=== PATIENT | male | born 1990 | race Caucasian/White ===

== ENCOUNTER 2022-08-25 14:29 | Emergency (ER) | payer OTHER ==
[~2022-08-25] VITALS: Ht 177.8 cm; Wt 78.0 kg
[2022-08-25] MEDS ORDERED: TDAP DIPH,PERTUSS,TET VAC/PF 0.5 ML DISP.SYRIN IM ONE ×2 (16:00→16:22)
[2022-08-25] MEDS ORDERED: NEOMY/BACITRA/POLYMYXIN B OINT UD PACKET TP ONE ×2 (16:00→16:22)
[2022-08-25] MEDS ORDERED: LIDOCAINE HCL 1% 20 ML VIAL IJ ONE (16:00)
[2022-08-25] MEDS ORDERED: LIDOCAINE HCL 1% 20 ML VIAL ONE (16:22)
[2022-08-25] MEDS ORDERED: ERYT3.5O24 LEFTEYE (17:12)
--- NOTE | 2022-08-25 17:35 | NUR ---
Patient discharged to home in stable condition. Written and verbal after care instructions given. Patient verbalizes understanding of instructions. Stressed follow up or return to ER for worsening s/s.
== END 2022-08-25 17:57 | disposition home or self-care (01) ==
LOC: ER 14:29
DX: S01.112A Laceration without foreign body of left eyelid and periocular area, initial encounter (principal); W22.8XXA Striking against or struck by other objects, initial encounter; Y92.89 Other specified places as the place of occurrence of the external cause; Y99.0 Civilian activity done for income or pay
CPT/HCPCS: 99283; 12011; 90715; 90471; J3490; A4663